=== PATIENT | female | born 1960 | race Caucasian/White ===

== ENCOUNTER → 2017-03-14 | Outpatient (CLI) | payer MEDICAID ==
[~2017-03-14] MED LIST: ALBU8.5H3 INH; AMBR10TA3 PO; ASPI-515 PO; ASPI-650 PO; CEFD300C37 PO; DIGO125T PO; FAMO-79 PO; FURO-92 PO; LEVO25TA4 PO; METO25TA2 PO; METO25TA91 PO; OXYC1TAB8 PO; POTA10TA11 PO; TADA20TA33 PO; [UNRECOGNIZED DRUG - OTHER] PO; lasix; lisinopril; potassium
== END | disposition home or self-care (01) ==
LOC: CFH 10:47
PROVIDERS: ATTEND Internal Medicine Cardiovascular Disease
DX: I07.1 Rheumatic tricuspid insufficiency (principal); I37.1 Nonrheumatic pulmonary valve insufficiency; I51.7 Cardiomegaly
CPT/HCPCS: 93306

== ENCOUNTER 2017-04-05 22:20 | Emergency (ER) | payer MEDICAID ==
[~2017-04-05] VITALS: Ht 160 cm; Wt 104.2 kg
[~2017-04-05 22:20] MED LIST changes: -ALBU8.5H3 INH; +ALBU8.5H8 INH
[2017-04-05] MEDS ORDERED: HYDROcodone/APAP 5/325 TABLET PO ONE (23:30)
[2017-04-05] MEDS ORDERED: IBUPROFEN 200 MG TABLET PO ONE (23:30)
[2017-04-05] MEDS ORDERED: HYDROcodone/APAP 5/325 TABLET ONE (23:33)
[2017-04-05] MEDS ORDERED: IBUPROFEN 200 MG TABLET ONE (23:34)
[2017-04-06] MEDS ORDERED: HYDROcodone/APAP 5/325 TABLET PO ONE
[2017-04-06] MEDS ORDERED: HYDROcodone/APAP 5/325 TABLET ONE (00:07)
[2017-04-06 00:23] VITALS: BP 106/60
== END 2017-04-06 00:40 | disposition home or self-care (01) ==
LOC: ED 23:59
DX: S93.491A Sprain of other ligament of right ankle, initial encounter (principal); R05 Cough; I50.9 Heart failure, unspecified; I25.2 Old myocardial infarction; J44.9 Chronic obstructive pulmonary disease, unspecified; W01.0XXA Fall on same level from slipping, tripping and stumbling without subsequent striking against object, initial encounter; Y93.89 Activity, other specified; Y99.8 Other external cause status; Y92.89 Other specified places as the place of occurrence of the external cause; Z87.891 Personal history of nicotine dependence
CPT/HCPCS: 71010; 99284

== ENCOUNTER 2017-08-17 03:50 | Inpatient (IN) | payer MEDICAID ==
[~2017-08-17] VITALS: Ht 160 cm; Wt 89.1 kg
[2017-08-17] MEDS ORDERED: ASPIRIN 81 MG TABLET CHEW ONE (04:19)
[2017-08-17] MEDS ORDERED: ASPIRIN 81 MG TABLET CHEW PO ONE (04:30)
[2017-08-17 04:50] LABS: BASOPHILS # (AUTO) 0.02 x10^3/uL (0-0.1); BASOPHILS % (AUTO) 0 % (0-1); EOSINOPHILS # (AUTO) 0.03 x10^3/uL (0-0.4); EOSINOPHILS % (AUTO) 0 % (1-7); LYMPHOCYTES # (AUTO) 0.68 x10^3/uL (1-3.4); LYMPHOCYTES % (AUTO) 10 % (22-44); MD NO; MEAN CORPUSCULAR HEMOGLOBIN 28.5 pg (27.0-34.8); MEAN CORPUSCULAR HGB CONC 33.4 g/dL (32.4-35.8); MEAN CORPUSCULAR VOLUME 85.4 fL (80-100); MEAN PLATELET VOLUME 7.8 fL (7.4-10.4); MONOCYTES # (AUTO) 0.48 x10^3/uL (0.2-0.8); MONOCYTES % (AUTO) 7 % (2-9); NEUTROPHILS # (AUTO) 5.94 x10^3/uL (1.8-6.8); NEUTROPHILS % (AUTO) 83 % (42-75); PLATELET COUNT 182 x10^3/uL (130-400); RED BLOOD COUNT 5.32 x10^6/uL (3.82-5.3)
[2017-08-17 05:02] LABS: ALBUMIN 3.3 g/dL (3.4-5.0); ANION GAP 8 mmol/L (5-15); CALCIUM 7.9 mg/dL (8.5-10.1); CHLORIDE 99 mmol/L (98-107)
[2017-08-17 05:08] LABS: CREATININE 1.02 mg/dL (0.55-1.02)
[2017-08-17] MEDS ORDERED: POTASSIUM CHLORIDE 20 MEQ TAB.ER.PRT PO ONE ×3 (05:30→13:30)
[2017-08-17] MEDS ORDERED: HEPARIN 5,000 UNITS/ML, 1ML IV ONE (06:00)
[2017-08-17] MEDS ORDERED: AZITHROMYCIN 500 MG in SODIUM CHLORIDE 0.9% 250 ML IV ONE (06:00)
[2017-08-17] MEDS ORDERED: HEPARIN 25,000 UNITS/500ML PMX 500 ML IV PRN (06:00)
[2017-08-17 06:14] LABS: INTERNATIONAL NORMALIZED RATIO 1.05 (0.93-1.1); PROTHROMBIN TIME 10.9 Seconds (9.6-11.5)
[2017-08-17] MEDS ORDERED: ONDANSETRON 2MG/ML, 2ML IVPush PRN ×2 (06:30→08:00)
[2017-08-17] MEDS ORDERED: SODIUM CHLORIDE 0.9% 1,000ML IVBOLUS ONE (06:30)
[2017-08-17] MEDS ORDERED: CEFTRIAXONE PMX 1GM/50ML 50 ML ONE (07:08)
[2017-08-17] MEDS ORDERED: HEPARIN 5,000 UNITS/ML, 1ML ONE (07:08)
[2017-08-17] MEDS ORDERED: POTASSIUM CHLORIDE 20 MEQ TAB.ER.PRT ONE (07:09)
[2017-08-17] MEDS ORDERED: HEPARIN 25,000 UNITS/500ML PMX 500 ML ONE (07:09)
[2017-08-17] MEDS: CEFTRIAXONE PMX 1GM/50ML 50 ML IV ONE ×2 (07:32→08:15)
[2017-08-17] MEDS ORDERED: POLYETHYLENE GLYCOL 17 GM PACKET PO PRN (08:00)
[2017-08-17] MEDS ORDERED: OXYcodone IR 5MG TABLET PO PRN (08:00)
[2017-08-17] MEDS ORDERED: TEMAZEPAM 15 MG CAPSULE PO PRN (08:00)
[2017-08-17] MEDS ORDERED: ACETAMINOPHEN 325 MG TABLET PO PRN (08:00)
[2017-08-17] MEDS ORDERED: LABETALOL 5MG/ML, 20ML IVPush PRN (08:00)
[2017-08-17 08:37] LABS: FREE T4 (FREE THYROXINE) 1.17 ng/dL (0.76-1.46)
[2017-08-17 08:40] LABS: TROPONIN I 0.979 ng/mL (0.000-0.045)
[2017-08-17] MEDS ORDERED: FAMOTIDINE 20 MG TABLET ONE (08:55)
[2017-08-17] MEDS ORDERED: FAMOTIDINE 20 MG TABLET PO SCH (09:00)
[2017-08-17] MEDS ORDERED: ONDANSETRON ODT 4 MG ONE (09:08)
[2017-08-17] MEDS ORDERED: ONDANSETRON 2MG/ML, 2ML ONE (09:11)
[2017-08-17] MEDS: TEMPLATE NON-FORMULARY MED. (Ambrisentan (Letairis**) 10 MG) PO SCH (10:00)
[2017-08-17] MEDS ORDERED: TEMPLATE NON-FORMULARY MED. (Albuterol Sulfate (Proair Hfa) 2 PUFF) INH PRN (10:00)
[2017-08-17] MEDS ORDERED: FUROSEMIDE 40 MG/4 ML IV ONE (10:00)
[2017-08-17] MEDS ORDERED: AZITHROMYCIN 500 MG in SODIUM CHLORIDE 0.9% 250 ML IV SCH (10:00)
[2017-08-17] MEDS ORDERED: CEFTAZIDIME 1,000 MG in SODIUM CHLORIDE 0.9% 50 ML IV SCH (10:00)
[2017-08-17] MEDS: ASPIRIN 325 MG TABLET EC PO SCH (11:11)
[2017-08-17 12:57] LABS: TROPONIN I 0.968 ng/mL (0.000-0.045)
[2017-08-17] MEDS ORDERED: HEPARIN 5,000 UNITS/ML, 1ML IV PRN (14:00)
[2017-08-17] MEDS: SENNA/DOCUSATE TABLET PO SCH (14:04)
[2017-08-17] MEDS: DIGOXIN 0.125 MG TABLET PO SCH (14:28)
[2017-08-17] MEDS: FAMOTIDINE 20 MG TABLET PO SCH ×2 (14:28→19:50)
[2017-08-17] MEDS ORDERED: ALBUTEROL/IPRATROPIUM 2.5MG/0.5MG, 3 ML NPPB PRN (14:30)
[2017-08-17] MEDS: ENOXAPARIN 40 MG/0.4 ML SQ SCH (17:51)
[2017-08-18 04:11] VITALS: BP 117/62
[2017-08-18 04:35] LABS: BASOPHILS # (AUTO) 0.02 x10^3/uL (0-0.1); BASOPHILS % (AUTO) 0 % (0-1); EOSINOPHILS # (AUTO) 0.03 x10^3/uL (0-0.4); EOSINOPHILS % (AUTO) 1 % (1-7); LYMPHOCYTES # (AUTO) 1.17 x10^3/uL (1-3.4); LYMPHOCYTES % (AUTO) 21 % (22-44); MD NO; MEAN CORPUSCULAR HEMOGLOBIN 28.8 pg (27.0-34.8); MEAN CORPUSCULAR HGB CONC 33.5 g/dL (32.4-35.8); MEAN CORPUSCULAR VOLUME 85.9 fL (80-100); MEAN PLATELET VOLUME 7.8 fL (7.4-10.4); MONOCYTES # (AUTO) 0.41 x10^3/uL (0.2-0.8); MONOCYTES % (AUTO) 7 % (2-9); NEUTROPHILS # (AUTO) 3.96 x10^3/uL (1.8-6.8); NEUTROPHILS % (AUTO) 71 % (42-75); PLATELET COUNT 160 x10^3/uL (130-400); RED CELL DISTRIBUTION WIDTH 15.9 % (9.6-15.2)
[2017-08-18 04:57] LABS: ALANINE AMINOTRANSFERASE 15 U/L (12-78); ALBUMIN 2.7 g/dL (3.4-5.0); ANION GAP 7 mmol/L (5-15); CALCIUM 7.7 mg/dL (8.5-10.1); CHLORIDE 106 mmol/L (98-107); CHOLESTEROL, TOTAL 91 mg/dL (140-239); CREATININE 0.97 mg/dL (0.55-1.02)
[2017-08-18 04:59] LABS: ALKALINE PHOSPHATASE 76 U/L (45-117); BILIRUBIN,TOTAL 0.3 mg/dL (0.2-1.0); CHOL/HDL RATIO 2.6; HDL CHOL % 38 % (28-40); HDL CHOLESTEROL (DIRECT) 35 mg/dL (40-60); LDL CHOLESTEROL,CALCULATED 44 mg/dL (54-169); TOTAL PROTEIN 6.2 g/dL (6.4-8.2); TRIGLYCERIDES 60 mg/dL (50-200); VLDL CHOLESTEROL 12 mg/dL (0-25)
[2017-08-18 05:00] LABS: LDL/HDL RATIO 1.3 (0.5-3.0)
[2017-08-18] MEDS ORDERED: POTASSIUM CHLORIDE 20 MEQ TAB.ER.PRT PO ONE (07:00)
[2017-08-18] MEDS: ALBUTEROL/IPRATROPIUM 2.5MG/0.5MG, 3 ML NPPB SCH ×5 (07:05→22:14)
[2017-08-18] MEDS: FAMOTIDINE 20 MG TABLET PO SCH ×2 (07:40→20:19)
[2017-08-18] MEDS: DIGOXIN 0.125 MG TABLET PO SCH (07:40)
[2017-08-18] MEDS: ASPIRIN 325 MG TABLET EC PO SCH (07:40)
[2017-08-18] MEDS: TEMPLATE NON-FORMULARY MED. (Ambrisentan (Letairis**) 10 MG) PO SCH (07:41)
[2017-08-18] MEDS: SENNA/DOCUSATE TABLET PO SCH (07:45)
[2017-08-18] MEDS: AZITHROMYCIN 500 MG in SODIUM CHLORIDE 0.9% 250 ML IV SCH (08:16)
[2017-08-18] MEDS: FUROSEMIDE 20 MG/2 ML IV SCH ×3 (09:45→20:18)
[2017-08-18] MEDS ORDERED: CEFTRIAXONE 1,000 MG in DEXTROSE 5% 50 ML IV ONE ×2 (10:00)
[2017-08-18] MEDS ORDERED: CEFTRIAXONE PMX 1GM/50ML 50 ML IV ONE (10:00)
[2017-08-18 11:12] LABS: CLOSTRIDIUM DIFFICILE ANTIGEN NEGATIVE; CLOSTRIDIUM DIFFICILE TOXIN NEGATIVE (Negative)
[2017-08-18] MEDS ORDERED: SELE800T PO (12:36)
[2017-08-18] MEDS ORDERED: FURO80TA77 PO (12:36)
[2017-08-18] MEDS ORDERED: TADA20TA33 PO (12:36)
[2017-08-18] MEDS ORDERED: LEVO25TA4 PO (12:36)
[2017-08-18] MEDS ORDERED: LOPERAMIDE 2 MG CAPSULE PO PRN (13:00)
[2017-08-18] MEDS ORDERED: LOPERAMIDE 2 MG CAPSULE PO ONE (13:00)
[2017-08-18] MEDS: ENOXAPARIN 40 MG/0.4 ML SQ SCH (16:55)
[2017-08-18] MEDS: UPTRAVI 800 MCG HOMEMEDPO SCH (20:21)
[2017-08-19] MEDS: ALBUTEROL/IPRATROPIUM 2.5MG/0.5MG, 3 ML NPPB SCH ×2 (03:00→07:15)
[2017-08-19 05:20] VITALS: BP 105/55
[2017-08-19] MEDS: LEVOTHYROXINE 25 MCG TABLET PO SCH (05:28)
[2017-08-19 08:18] LABS: ANION GAP 7 mmol/L (5-15); CALCIUM 7.7 mg/dL (8.5-10.1); CHLORIDE 102 mmol/L (98-107)
[2017-08-19] MEDS: ADCIRCA HOMEMEDPO SCH (09:00)
[2017-08-19] MEDS: TEMPLATE NON-FORMULARY MED. (Ambrisentan (Letairis**) 10 MG) PO SCH (09:00)
[2017-08-19] MEDS: UPTRAVI 800 MCG HOMEMEDPO SCH ×2 (09:00→21:00)
[2017-08-19] MEDS: AZITHROMYCIN 500 MG in SODIUM CHLORIDE 0.9% 250 ML IV SCH (09:04)
[2017-08-19] MEDS: POTASSIUM CHLORIDE 20 MEQ TAB.ER.PRT PO SCH (09:12)
[2017-08-19] MEDS: OMEPRAZOLE 20 MG CAPSULE.DR PO SCH ×2 (09:13→22:06)
[2017-08-19] MEDS: ASPIRIN 325 MG TABLET EC PO SCH (09:16)
[2017-08-19] MEDS: SENNA/DOCUSATE TABLET PO SCH (09:17)
[2017-08-19] MEDS: DIGOXIN 0.125 MG TABLET PO SCH (09:17)
[2017-08-19] MEDS ORDERED: ALBUTEROL/IPRATROPIUM 2.5MG/0.5MG, 3 ML NPPB PRN (10:00)
[2017-08-19] MEDS: CEFTRIAXONE PMX 2GM/50ML 50 ML IVPB SCH (10:17)
[2017-08-19] MEDS ORDERED: PNEUMOCOCCAL 23 VACCINE IM-VACC ONE (12:00)
[2017-08-19] MEDS ORDERED: FLU VACC QS2017-18 (36MOS+) UP/PF 0.5 ML IM-VACC ONE (12:00)
[2017-08-19 14:17] VITALS: BP 109/62
[2017-08-19] MEDS: FUROSEMIDE 20 MG TABLET PO SCH (17:17)
[2017-08-19] MEDS: ENOXAPARIN 40 MG/0.4 ML SQ SCH (17:17)
[2017-08-19 21:59] VITALS: BP 121/84
[2017-08-20 03:59] VITALS: BP 100/65
[2017-08-20 05:21] LABS: CHLORIDE 104 mmol/L (98-107)
[2017-08-20 05:26] LABS: ANION GAP 6 mmol/L (5-15); CALCIUM 7.8 mg/dL (8.5-10.1); CREATININE 0.68 mg/dL (0.55-1.02)
[2017-08-20] MEDS: LEVOTHYROXINE 25 MCG TABLET PO SCH (06:27)
[2017-08-20 08:38] VITALS: BP 98/61
[2017-08-20] MEDS: SENNA/DOCUSATE TABLET PO SCH (09:14)
[2017-08-20] MEDS: POTASSIUM CHLORIDE 20 MEQ TAB.ER.PRT PO SCH (09:16)
[2017-08-20] MEDS: ASPIRIN 325 MG TABLET EC PO SCH (09:16)
[2017-08-20] MEDS: ADCIRCA HOMEMEDPO SCH (09:16)
[2017-08-20] MEDS: UPTRAVI 800 MCG HOMEMEDPO SCH (09:16)
[2017-08-20] MEDS: OMEPRAZOLE 20 MG CAPSULE.DR PO SCH (09:16)
[2017-08-20] MEDS: FUROSEMIDE 20 MG TABLET PO SCH (09:16)
[2017-08-20] MEDS: DIGOXIN 0.125 MG TABLET PO SCH (09:16)
[2017-08-20] MEDS: TEMPLATE NON-FORMULARY MED. (Ambrisentan (Letairis**) 10 MG) PO SCH (09:17)
[2017-08-20] MEDS: AZITHROMYCIN 500 MG in SODIUM CHLORIDE 0.9% 250 ML IV SCH (09:45)
[2017-08-20] MEDS: CEFTRIAXONE PMX 2GM/50ML 50 ML IVPB SCH (10:59)
[2017-08-20] MEDS ORDERED: LEVO750T26 PO (13:15)
== END 2017-08-20 14:20 | disposition home or self-care (01) | DRG 193 ==
LOC: ED 05:30 → EDIP 06:10 → ICU 13:21 → 4EST 08-19 14:01
PROVIDERS: ADMIT Internal Medicine; ATTEND Internal Medicine
DX: J18.1 Lobar pneumonia, unspecified organism (principal); J96.01 Acute respiratory failure with hypoxia; I50.32 Chronic diastolic (congestive) heart failure; J44.0 Chronic obstructive pulmonary disease with (acute) lower respiratory infection; I11.0 Hypertensive heart disease with heart failure; Z99.81 Dependence on supplemental oxygen; I45.10 Unspecified right bundle-branch block; I25.10 Atherosclerotic heart disease of native coronary artery without angina pectoris; I70.0 Atherosclerosis of aorta; J44.9 Chronic obstructive pulmonary disease, unspecified; K80.20 Calculus of gallbladder without cholecystitis without obstruction; F32.9 Major depressive disorder, single episode, unspecified; E87.6 Hypokalemia; E66.9 Obesity, unspecified; I25.2 Old myocardial infarction; Z82.49 Family history of ischemic heart disease and other diseases of the circulatory system; Z79.82 Long term (current) use of aspirin; Z87.891 Personal history of nicotine dependence; Z83.3 Family history of diabetes mellitus; Z91.14 Patient's other noncompliance with medication regimen; Z23 Encounter for immunization; Z88.2 Allergy status to sulfonamides; Z88.0 Allergy status to penicillin; Z88.1 Allergy status to other antibiotic agents; Z88.5 Allergy status to narcotic agent; Z88.8 Allergy status to other drugs, medicaments and biological substances; F15.90 Other stimulant use, unspecified, uncomplicated; Z98.51 Tubal ligation status
CPT/HCPCS: 36415; 36600; 71045; 80048; 80053; 80061; 82040; 82803; 83605; 83735; 83880; 84132; 84145; 84439; 84443; 84484; 85025; 85520; 85610; 85730; 86677; 87040; 87081; 87324; 90686; 90732; 93005; 94640; 96365; 96368; 96375; J0456; J0696; J0713; J1644; J1650; J2405; J7620; J1940; J7030; J7050

== ENCOUNTER → 2018-08-20 | Outpatient (CLI) | payer MEDICAID ==
[~2018-08-20] MED LIST changes: +FURO80TA77 PO; +LEVO750T26 PO; +SELE800T PO
== END | disposition home or self-care (01) ==
LOC: CVU 10:54
PROVIDERS: ATTEND Internal Medicine Cardiovascular Disease
DX: I07.1 Rheumatic tricuspid insufficiency (principal); I07.9 Rheumatic tricuspid valve disease, unspecified; I27.21 Secondary pulmonary arterial hypertension; R06.02 Shortness of breath; J44.9 Chronic obstructive pulmonary disease, unspecified; Z87.891 Personal history of nicotine dependence
CPT/HCPCS: 93306